=== PATIENT | male | born 1965 | race Caucasian/White ===

== ENCOUNTER 2023-07-02 11:05 | Day surgery (SDC) | payer OTHER | END 2023-07-02 11:21 | disposition home or self-care (01) | LOC: MDS 11:05 → MMU 11:20 → MDS 11:21 | PROVIDERS: ATTEND Internal Medicine Gastroenterology | DX: Z12.11 Encounter for screening for malignant neoplasm of colon (principal); Z53.8 Procedure and treatment not carried out for other reasons ==